=== PATIENT | female | born 1930 | race Caucasian/White ===

== ENCOUNTER 2016-12-24 17:11 | Emergency (ER) | payer OTHER ==
[~2016-12-24] VITALS: Ht 152.4 cm; Wt 54.0 kg
[~2016-12-24 17:11] MED LIST: ACET-1138 PO; ASPEC325 PO; BIOTPOW17 PO; CALC-338 PO; CHOL100010 PO; FRRG PO; LEVO50TA PO; MULTTAB5 PO; OMEGCAP2 PO; OMEP40CA PO; ROSU5TAB PO; RXC5 PO; VITACAP37 PO
[2016-12-24 17:25] VITALS: TEMP 36.5; Ht 152.4 cm; Wt 54.0 kg
--- NOTE | 2016-12-24 17:55 | EMERGENCY ROOM VISIT NOTE ---
History Report prepared by Samina: Avila Leyva Under the Supervision of: Dr. Stephen Steinberg M.D. First contact with patient: 17:37 Chief Complaint: FALL Stated Complaint: FELL, HIT HEAD AND ARM History of Present Illness The patient is an 86 year old female who presents to the Emergency Room with complaints of a mechanical fall that occurred prior to arrival today. She says that she was sitting on her chair reading with a cup of coffee, and she thought that she needed to get a glass of water, so she got up. However, when she got up , she fell backwards and hit the back of her head on the hardwood floor. The patient notes that she also hit her right elbow and right hip on the ground. She does complain of some right shoulder pain. She denies any loss of consciousness, or any dizziness prior to the fall. She says that she then tried to get up, but the floor was slippery. She then called her daughter, who lives 3 doors down, to come over. The patient says that her headache is the main problem, and she has a bit of right elbow pain with walking. She denies any chest pain, teeth or jaw problems, neck pain, shortness of breath, abdominal pain, back pain, melena, or hematochezia. The patient's daughter says that the patient has not been confused. The patient adds that she has had a bad cough recently, and saw her primary care physician today, and had a chest x-ray done there. The patient had an appointment scheduled at [facility] next week for a breathing test. The patient's daughter adds that the patient was nauseous and dizzy on the way here to the hospital. The patient does take a baby aspirin every morning. Source of History: patient, family (daughter) Onset: Prior to arrival Position: other (global - fall) Quality: other (mechanical) Associated Symptoms: + headache (hit back of head), + cough (recently), + nausea, No LOC, No chest pain, No SOB, No abdominal pain, No back pain, No melena, No hematochezia Note: Associated symptoms: Hit right elbow and right hip on ground. Right shoulder pain. Dizzy after fall. Denies teeth or jaw problems, or confusion. Review of Systems See HPI for pertinent positives & negatives. A total of 10 systems reviewed and were otherwise negative. Past Medical & Surgical Medical Problems: (1) GERD (gastroesophageal reflux disease) Surgical Problems: (1) History of hip replacement (2) History of knee replacement Old medical records were reviewed. Nurse's notes were reviewed and I agree with. Family History Diabetes mellitus FH: heart disease FH: lung disease FHx: cancer Social History Smoking Status: Never Smoker Smokeless Tobacco Use: No Alcohol Use: none Marital Status: Housing Status: lives alone Occupation Status: retired Current/Historical Medications Scheduled Aspirin (Aspirin Ec), 81 MG PO DAILY Calcium Citrate-Vitamin D (Citracal + D3 Maximum), 1 TAB PO DAILY Cholecalciferol (Vitamin D3), 1,000 UNITS PO DAILY Coenzyme Q10 (Ubidecarenone) (Co Q 10), 1 CAP PO DAILY Cyanocobalamin (Vitamin B12), 2,500 MCG PO DAILY Levothyroxine Sodium (Levothyroxine Sodium), 50 MCG PO DAILY Meloxicam (Mobic), 7.5 MG PO DAILY Multiple Vitamins W/ Minerals (Hair/Skin/Nails), 1 CAP PO DAILY Multivitamin (Multivitamin), 1 TAB PO DAILY Ocuvite Preservision (Ocuvite Preservision), 1 TAB PO DAILY Radiant-3 Fatty Acids (Fish Oil), 1,000 MG PO DAILY Omeprazole (Prilosec), 20 MG PO DAILY Rosuvastatin Calcium (Crestor), 5 MG PO DAILY Allergies Coded Allergies: NO KNOWN DRUG ALLERGIES (Unverified Allergy, Unknown, NONE, 03/07/14) Adhesives (Unverified Adverse Reaction, Unknown, LOCAL RASH IF IN CONTACT WITH SKIN TOO LONG, 03/07/14) Physical Exam Vital Signs Date Time Temp Pulse Resp B/P (MAP) Pulse Ox O2 Delivery O2 Flow Rate FiO2 12/24/16 20:44 92 18 127/75 97 12/24/16 19:40 71 16 136/77 95 Room Air 12/24/16 17:25 36.5 66 16 151/79 96 Physical Exam General: Well developed well nourished non ill appearing older female, resting comfortably in bed with an ice pack on her head, in no acute distress, breathing comfortably on room air. Normal speech HEENT: Normal cephalic atraumatic. Pupils are equal round and reactive to light. Extraocular movements are intact. Oropharynx is pink with moist mucous membranes. No swelling of the mouth lips or tongue. Neck: Supple with a midline trachea. No meningeal signs or stiffness, no JVD or bruits. No Stridor. Chest: Clear to auscultation bilaterally. No wheezes or rhonchi. No increased work of breathing. Heart: regular rate and rhythm. Abdomen: Soft nontender, nondistended without rebound guarding or rigidity. Extremities: Right shoulder mildly tender with movement. Full range of motion of hips without shortening or deformity. No calf tenderness or assymetry Spine/Back. Non tender to palpation. No CVA tenderness Skin: Good turgor without rashes. Neurologic exam: Cranial nerves two through 12 are intact. Motor and sensation are intact and symmetrical throughout. GCS of 15. Medical Decision & Procedures ER Provider Diagnostic Interpretation: Radiology results as stated below per my review and radiologist interpretation: RIGHT SHOULDER MIN 2 VIEWS ROUTINE CLINICAL HISTORY: Right shoulder pain following injury. COMPARISON: None FINDINGS: Alignment of the right acromioclavicular and glenohumeral joints is anatomic. No acute fracture is identified. A 7 mm calcific density along the superolateral aspect of the right humeral head suggests calcific tendinitis. There is moderate arthritis of the right glenohumeral and acromioclavicular joints. IMPRESSION: 1. No acute fracture or dislocation of the right shoulder. 2. 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 3. Findings suggestive of calcific tendinitis of the right rotator cuff. Electronically signed by: Gilberto Strong M.D. 12/24/2016 7:17 PM Dictated Date/Time: 12/24/2016 7:15 PM RIGHT PELVIS/UNILATERAL HIP 2-3VIEWS CLINICAL HISTORY: Right hip pain following fall. COMPARISON: Pelvis and right hip radiographs March 07, 2014. FINDINGS: The sacroiliac joints and symphysis pubis are intact. Alignment of the total right hip arthroplasty is anatomic. There is no acute fracture within the pelvis or the hips. There is mild to moderate arthritis of the left hip. Degenerative changes within the lower lumbar spine are incidentally noted. IMPRESSION: 1. No acute fracture within the pelvis or hips. 2. Status post total right hip arthroplasty. Hardware intact with no periprosthetic fracture. Anatomic alignment. Electronically signed by: Gilberto Strong M.D. 12/24/2016 7:21 PM Dictated Date/Time: 12/24/2016 7:[address] OF THE HEAD WITHOUT CONTRAST CLINICAL HISTORY: Fall with head injury. COMPARISON STUDY: No previous studies for comparison. CT DOSE: 601.98 mGy.cm TECHNIQUE: Helical axial images of the head were obtained without IV contrast. Automated exposure control was utilized for the study. A dose lowering technique was utilized adhering to the principles of ALARA. FINDINGS: No acute intracranial hemorrhage, midline shift or mass effect is present. Ventricular system is normal for age. Basilar cisterns are patent. There are no extra-axial collections. A 6 mm partially calcified lesion within the left aspect of the posterior fossa likely reflects a meningioma along the left aspect of the tentorium. White matter hypodensity suggests small vessel disease. There are no findings to suggest acute dural sinus thrombosis or acute territorial infarct. There is no calvarial fracture. IMPRESSION: 1. No acute intracranial findings. 2. No calvarial fracture. 3. 6 mm calcified lesion along the undersurface of the left tentorium which suggests a small meningioma. Electronically signed by: Gilberto Strong M.D. 12/24/2016 6:38 PM Dictated Date/Time: 12/24/2016 6:34 PM CHEST 1 VW FRONT-NOT PORTABLE CLINICAL HISTORY: Chest pain. COMPARISON STUDY: Chest radiograph February 28, 2014. FINDINGS: There is no pneumothorax or pleural effusion. Pulmonary vascularity is normal. Cardiomediastinal silhouette is unremarkable. A moderate compression deformity within the lower thoracic spine, likely at the T 11 level is age-indeterminate but likely chronic. There is mild loss of height of L1. No airspace opacities are present. IMPRESSION: No acute cardiopulmonary findings. Electronically signed by: Gilberto Strong M.D. 12/24/2016 7:20 PM Dictated Date/Time: 12/24/2016 7:18 PM Laboratory Results 12/24/16 18:00 Red Blood Count 4.40, Mean Corpuscular Volume 92.0, Mean Corpuscular Hemoglobin 29.5, Mean Corpuscular Hemoglobin Concent 32.1, Mean Platelet Volume 12.1, Neutrophils (%) (Auto) 60.7, Lymphocytes (%) (Auto) 25.2, Monocytes (%) (Auto) 10.0, Eosinophils (%) (Auto) 3.3, Basophils (%) (Auto) 0.5, Neutrophils # (Auto ) 4.82, Lymphocytes # (Auto) 2.00, Monocytes # (Auto) 0.79, Eosinophils # (Auto ) 0.26, Basophils # (Auto) 0.04 12/24/16 18:00 Test 12/24/16 18:00 12/24/16 18:04 White Blood Count 7.93 K/uL (4.8-10.8) Red Blood Count 4.40 M/uL (4.2-5.4) Hemoglobin 13.0 g/dL (12.0-16.0) Hematocrit 40.5 % (37-47) Mean Corpuscular Volume 92.0 fL (80-100) Mean Corpuscular Hemoglobin 29.5 pg (25-34) Mean Corpuscular Hemoglobin Concent 32.1 g/dl (32-36) Platelet Count 208 K/uL (130-400) Mean Platelet Volume 12.1 fL (7.4-10.4) Neutrophils (%) (Auto) 60.7 % Lymphocytes (%) (Auto) 25.2 % Monocytes (%) (Auto) 10.0 % Eosinophils (%) (Auto) 3.3 % Basophils (%) (Auto) 0.5 % Neutrophils # (Auto) 4.82 K/uL (1.4-6.5) Lymphocytes # (Auto) 2.00 K/uL (1.2-3.4) Monocytes # (Auto) 0.79 K/uL (0.11-0.59) Eosinophils # (Auto) 0.26 K/uL (0-0.5) Basophils # (Auto) 0.04 K/uL (0-0.2) RDW Standard Deviation 43.4 fL (36.4-46.3) RDW Coefficient of Variation 12.8 % (11.5-14.5) Immature Granulocyte % (Auto) 0.3 % Immature Granulocyte # (Auto) 0.02 K/uL (0.00-0.02) Anion Gap 5.0 mmol/L (3-11) Est Creatinine Clear Calc Drug Dose 37.2 ml/min Estimated GFR () 82.5 Estimated GFR (Non- 71.2 BUN/Creatinine Ratio 21.5 (10-20) Calcium Level 8.6 mg/dl (8.5-10.1) Total Bilirubin 0.6 mg/dl (0.2-1) Direct Bilirubin 0.2 mg/dl (0-0.2) Aspartate Amino Transf (AST/SGOT) 31 U/L (15-37) Alanine Aminotransferase (ALT/SGPT) 28 U/L (12-78) Alkaline Phosphatase 43 U/L (45-117) Total Protein 6.7 gm/dl (6.4-8.2) Albumin 3.3 gm/dl (3.4-5.0) Lipase 166 U/L (73-393) Bedside Troponin I < 0.030 ng/ml (0-0.045) Laboratory studies as stated above per my review. ECG Indication: nausea Rate (beats per minute): 73 Rhythm: normal sinus Findings: PVC, no acute ischemic change, no ectopy Comparison ECG Date: compared to February 28 2014, PVC's not present ED Course 174: Past medical records reviewed. The patient was evaluated in room B4B, and a complete history and physical examination were performed. 2026: Upon reevaluation, the patient is resting comfortably. I discussed the results and treatment plan with her. She verbalized agreement of the treatment plan. The patient was discharged home. Medical Decision Differentials include, but are not limited to; head injury, syncope, orthopedic injuries, infection, electrolyte or metabolic abnormality. This patient comes in as described above. She suffered what sounds like a mechanical fall . She said she fell after getting up she's not sure why she fell but she does not think she lost consciousness. She had no symptoms prior to falling such as weakness or chest pain or dizziness. EKG was obtained of her head was unremarkable. She has a [place] Coma Score of 15 in the emergency department. I did an x-ray of her right shoulder as well as her hip, there is no fracture or dislocation or acute traumatic injury. She has nothing to suggest acute arrhythmia on her EKG or cardiac event or ischemia. She's had no acute electrode or metabolic abnormalities or anemia. She feels good and like to go home. She probably does have a mild concussion as she did hit her head, I told her to drink lots of fluids and rest and be careful getting up and down and have her daughter stay with her next couple days. I also encouraged to have her doctor recheck her in the in a couple days ensure she is doing well. Use [id number] pain medication if needed but do not exceed the over-the- counter recommended dosages and return if: increasing pain, worsening of symptoms, not acting like self, any new problems concerns. She was happy with the plan and discharged to home. Head Trauma GCS Score: 15 Medication Reconcilliation Current Medication List: was personally reviewed by me Blood Pressure Screening Patient's blood pressure: Elevated blood pressure Blood pressure disposition: Elevated BP felt to be situational Impression Primary Impression: Concussion Additional Impression: Contusion of right shoulder Scribe Attestation The scribe's documentation has been prepared under my direction and personally reviewed by me in its entirety. I confirm that the note above accurately reflects all work, treatment, procedures, and medical decision making performed by me. Departure Information Dispostion Home / Self-Care Referrals No Doctor, Assigned (PCP) Forms HOME CARE DOCUMENTATION FORM, IMPORTANT VISIT INFORMATION Patient Instructions My [facility] Additional Instructions Rest. Drink plenty of fluids. Be careful getting up and down. Return if: Increasing pain, worsening of symptoms, fever or chills, any new problems or concerns. Follow-up with your doctor on Wednesday for recheck Problem Qualifiers Primary Impression: Concussion Encounter type: initial encounter Loss of consciousness presence/duration: without LOC Qualified Codes: S06.0X0A - Concussion without loss of consciousness, initial encounter Additional Impression: Contusion of right shoulder Encounter type: initial encounter Qualified Codes: S40.011A - Contusion of right shoulder, initial encounter
[2016-12-24] MEDS ORDERED: PRLSR20 PO (18:00)
[2016-12-24] MEDS ORDERED: MULT-506 PO (18:00)
[2016-12-24] MEDS ORDERED: VTMD1000 PO (18:00)
[2016-12-24] MEDS ORDERED: MULT1CAP52 PO (18:00)
[2016-12-24] MEDS ORDERED: CYAN100020 PO (18:00)
[2016-12-24] MEDS ORDERED: OMEG10002 PO (18:00)
[2016-12-24] MEDS ORDERED: COEN10CA5 PO (18:00)
[2016-12-24] MEDS ORDERED: CALC1TAB9 PO (18:00)
[2016-12-24] MEDS ORDERED: ASPI81TA28 PO (18:00)
[2016-12-24] MEDS ORDERED: LEVO50TA6 PO (18:00)
[2016-12-24] MEDS ORDERED: MELO7.5T5 PO (18:00)
[2016-12-24] MEDS ORDERED: ROSU5TAB PO (18:00)
[2016-12-24] MEDS ORDERED: MULT-190 PO (18:00)
[2016-12-24 18:13] LABS: BASO % 0.5 %; BASO ABS # 0.04 K/uL (0-0.2); COMPLETE YES; EOS % 3.3 %; HEMATOCRIT 40.5 % (37-47); IG% 0.3 %; LYMPH % 25.2 %; MEAN CORPUSCULAR HEMOGLOBIN 29.5 pg (25-34); MEAN CORPUSCULAR HGB CONC 32.1 g/dl (32-36); MEAN PLATELET VOLUME 12.1 fL (7.4-10.4); NEUT % 60.7 %; PLATELET COUNT 208 K/uL (130-400); WHITE BLOOD COUNT 7.93 K/uL (4.8-10.8)
[2016-12-24 18:35] LABS: BUN/CREATININE RATIO 21.5 (10-20); CALCIUM 8.6 mg/dl (8.5-10.1); CREATININE 0.75 mg/dl (0.60-1.20); POTASSIUM 3.7 mmol/L (3.5-5.1)
--- NOTE | 2016-12-24 18:40 | DIAGNOSTIC IMAGING REPORT ---
CT OF THE HEAD WITHOUT CONTRAST CLINICAL HISTORY: Fall with head injury. COMPARISON STUDY: No previous studies for comparison. CT DOSE: 601.98 mGy.cm TECHNIQUE: Helical axial images of the head were obtained without IV contrast. Automated exposure control was utilized for the study. A dose lowering technique was utilized adhering to the principles of ALARA. FINDINGS: No acute intracranial hemorrhage, midline shift or mass effect is present. Ventricular system is normal for age. Basilar cisterns are patent. There are no extra-axial collections. A 6 mm partially calcified lesion within the left aspect of the posterior fossa likely reflects a meningioma along the left aspect of the tentorium. White matter hypodensity suggests small vessel disease. There are no findings to suggest acute dural sinus thrombosis or acute territorial infarct. There is no calvarial fracture. IMPRESSION: 1. No acute intracranial findings. 2. No calvarial fracture. 3. 6 mm calcified lesion along the undersurface of the left tentorium which suggests a small meningioma. Electronically signed by: Gilberto Strong M.D. 12/24/2016 6:38 PM Dictated Date/Time: 12/24/2016 6:34 PM
--- NOTE | 2016-12-24 19:19 | DIAGNOSTIC IMAGING REPORT ---
RIGHT SHOULDER MIN 2 VIEWS ROUTINE CLINICAL HISTORY: Right shoulder pain following injury. COMPARISON: None FINDINGS: Alignment of the right acromioclavicular and glenohumeral joints is anatomic. No acute fracture is identified. A 7 mm calcific density along the superolateral aspect of the right humeral head suggests calcific tendinitis. There is moderate arthritis of the right glenohumeral and acromioclavicular joints. IMPRESSION: 1. No acute fracture or dislocation of the right shoulder. 2. 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 3. Findings suggestive of calcific tendinitis of the right rotator cuff. Electronically signed by: Gilberto Strong M.D. 12/24/2016 7:17 PM Dictated Date/Time: 12/24/2016 7:15 PM
--- NOTE | 2016-12-24 19:21 | DIAGNOSTIC IMAGING REPORT ---
CHEST 1 VW FRONT-NOT PORTABLE CLINICAL HISTORY: Chest pain. COMPARISON STUDY: Chest radiograph February 28, 2014. FINDINGS: There is no pneumothorax or pleural effusion. Pulmonary vascularity is normal. Cardiomediastinal silhouette is unremarkable. A moderate compression deformity within the lower thoracic spine, likely at the T 11 level is age-indeterminate but likely chronic. There is mild loss of height of L1. No airspace opacities are present. IMPRESSION: No acute cardiopulmonary findings. Electronically signed by: Gilberto Strong M.D. 12/24/2016 7:20 PM Dictated Date/Time: 12/24/2016 7:18 PM
--- NOTE | 2016-12-24 19:22 | DIAGNOSTIC IMAGING REPORT ---
RIGHT PELVIS/UNILATERAL HIP 2-3VIEWS CLINICAL HISTORY: Right hip pain following fall. COMPARISON: Pelvis and right hip radiographs March 07, 2014. FINDINGS: The sacroiliac joints and symphysis pubis are intact. Alignment of the total right hip arthroplasty is anatomic. There is no acute fracture within the pelvis or the hips. There is mild to moderate arthritis of the left hip. Degenerative changes within the lower lumbar spine are incidentally noted. IMPRESSION: 1. No acute fracture within the pelvis or hips. 2. Status post total right hip arthroplasty. Hardware intact with no periprosthetic fracture. Anatomic alignment. Electronically signed by: Gilberto Strong M.D. 12/24/2016 7:21 PM Dictated Date/Time: 12/24/2016 7:20 PM
[2016-12-24 20:44] VITALS: BP 127/75; PULSE 92; O2SAT 97
== END 2016-12-24 20:47 | disposition home or self-care (01) ==
LOC: C.EDB 17:12
DX: S06.0X0A Concussion without loss of consciousness, initial encounter (principal); S40.011A Contusion of right shoulder, initial encounter; W01.198A Fall on same level from slipping, tripping and stumbling with subsequent striking against other object, initial encounter; K21.9 Gastro-esophageal reflux disease without esophagitis; Z96.649 Presence of unspecified artificial hip joint; Z96.659 Presence of unspecified artificial knee joint; Z83.3 Family history of diabetes mellitus; Z79.82 Long term (current) use of aspirin; Z79.899 Other long term (current) drug therapy

== ENCOUNTER → 2017-09-29 | Outpatient (CLI) | payer OTHER ==
[~2017-09-29] MED LIST changes: -ACET-1138 PO; -ASPEC325 PO; +ASPI81TA28 PO; -BIOTPOW17 PO; -CALC-338 PO; +CALC1TAB9 PO; -CHOL100010 PO; +COEN10CA5 PO; +CYAN100020 PO; -FRRG PO; -LEVO50TA PO; +LEVO50TA6 PO; +MELO7.5T5 PO; +MULT-190 PO; +MULT-506 PO; +MULT1CAP52 PO; -MULTTAB5 PO; +OMEG10002 PO; -OMEGCAP2 PO; -OMEP40CA PO; +PRLSR20 PO; +REGADENOSON 0.4 MG/5 ML SYR ONE; -RXC5 PO; -VITACAP37 PO; +VTMD1000 PO
--- NOTE | 2017-09-29 22:50 | MYOCARDIAL PERFUSION SCAN ---
STRESS SUMMARY: The patient received Lexiscan injection according to standard protocol. The resting heart rate is 63 beats per minute which nicole to a maximum heart rate of 101 beats per minute. This value represents 77% of the maximal age predicted target heart rate. Resting blood pressure of 144/72 with a maximum blood pressure of 144/72. SYMPTOMS: Mild lower extremity discomfort which resolved without intervention. Normal heart rate response to Lexiscan infusion. Normal blood pressure response to Lexiscan infusion. RESTING ECG: Sinus rhythm, PVCs. STRESS ECG: Sinus rhythm with occasional PVCs as well as brief periods of ventricular bigeminy. No significant ST abnormalities. No evidence of ischemia. TECHNIQUE: For the stress portion of the study, 30.1 mCi of Technetium 99 m Cardiolite IV was injected at 11:55 a.m. on 09/29/2017. 30 minutes following the injection, imaging of the heart was performed in multiple projection. For the rest portion of the study, 10.6 mCi of Technetium 99 m Cardiolite was injected IV at 10:35 a.m.. One hour following the injection, imaging of the heart was performed in the same projections. RAW IMAGES: No extraneous uptake of isotopic tracer. Right ventricle not well visualized. RESTING IMAGES: There is a small defect of mild intensity involving left ventricular apex, otherwise normal perfusion. STRESS IMAGES: Small defect of mild intensity involving left ventricular apex, otherwise normal perfusion. GATED STUDY: Calculated ejection fraction is 73%. Left ventricular wall motion is normal. The left ventricular size is normal at rest. The t.i.d. index was not calculated. FINAL IMPRESSION: 1. Lexiscan nuclear stress test negative for inducible ischemia. 2. Normal gated SPECT study with a calculated ejection fraction of 73%.
== END | disposition home or self-care (01) ==
LOC: C.NUCL 09:12
PROVIDERS: ATTEND Internal Medicine Cardiovascular Disease
DX: R00.2 Palpitations (principal); M54.2 Cervicalgia; R06.00 Dyspnea, unspecified